=== PATIENT | female | born 1985 | race Caucasian/White ===

== ENCOUNTER 2019-06-16 16:55 | Emergency (ER) | payer SELFPAY ==
[~2019-06-16] VITALS: Ht 175.3 cm; Wt 79.5 kg
[2019-06-16 17:12] VITALS: Ht 175.3 cm; Wt 79.5 kg
[2019-06-16] MEDS ORDERED: NAPROSYN500 MG PO (19:10)
[2019-06-16 19:17] VITALS: BP 109/77
== END 2019-06-16 19:17 | disposition home or self-care (01) ==
LOC: D.ER 16:55
DX: S62.91XA Unspecified fracture of right hand, initial encounter for closed fracture (principal); S92.253A Displaced fracture of navicular [scaphoid] of unspecified foot, initial encounter for closed fracture; Y04.8XXA Assault by other bodily force, initial encounter; Y93.9 Activity, unspecified; Y92.9 Unspecified place or not applicable